=== PATIENT | female | born 2000 | race Caucasian/White ===

== ENCOUNTER 2021-04-20 12:30 | Outpatient (RCR) | payer OTHER, SELFPAY ==
--- NOTE | 2021-02-10 14:30 | PTOPEVAL ---
INITIAL PHYSICAL THERAPY EVALUATION/DISCHARGE SUMMARY Thank you for referring Caren Fuller to [facility].? Caren does not appear to need skilled PT at this times. I agree with the above. Referring Physician Date Admitting Provider: Attending Provider: Tyler Motta MD Referring Provider: *PT Outpatient Evaluation Start: 02/10/21 13:39 Freq: Status: Active Protocol: Document 02/10/21 13:35 DRU (Rec: 02/10/21 14:28 DRU [id number]) Therapy Assessment Status Assessment Status Assessment Status Evaluation Outpatient Past Medical History Past Medical History Source of Past Medical History Patient Neurological History Hx Cerebrovascular Accident (CVA) Yes: 12/2020-acute arterial ischemic stroke Hx Migraine Yes Cardiovascular History Hx Hypercholesterolemia Yes Evaluation Information Problem Diagnosis acute arterial ischemic stroke , multifocal, multiple vascular territories Onset ~01/06/21 Subjective Information Caren began noticing something Query Text:As Reported By Patient/ into R UE, slurred speech. Family Had just received 2nd COVID vaccine. When woke up next day - R arm felt like a noodle as well as with mild speech difficulties. Walking was a little more difficulty - clumsy type of feeling. Went to [facility] - then transferred to [place]. 1st time x 5 days Then returned for another steroid treatment - 5 days admission. 2nd discharge 01/16/21. Somehow her first PT and OT orders for out patient were cancelled. Took awhile to receive new orders. Caren reports being back to normal with exception of going downstairs by herself . Home stairs very steep and no railing. 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
--- NOTE | 2021-02-10 15:36 | OTOPEVAL ---
OCCUPATIONAL THERAPY INITIAL EVALUATION REPORT 02/10/21 Thank you for referring Caren Fuller to [facility].? The patient is scheduled to be seen for occupational therapy? 2x/week for 5 weeks. Please review, sign, date and return this plan of care CHERELLE. I agree with and certify that the following plan of care is medically necessary. Referring Physician Date Referring Provider: Tyler Motta MD *OT Outpatient Evaluation Start: 02/10/21 14:33 Therapy Assessment Status Assessment Status Assessment Status Evaluation Outpatient Past Medical History Past Medical History Source of Past Medical History Patient Neurological History Hx Cerebrovascular Accident (CVA) Yes: 12/2020-acute arterial ischemic stroke Hx Migraine Yes Cardiovascular History Hx Hypercholesterolemia Yes Respiratory History Hx Respiratory Disorders No Significant History Gastrointestinal History Hx Gastrointestinal Disorders No Significant History Genitourinary History Hx Genitourinary Disorders No Significant History Musculoskeletal History Hx Musculoskeletal Disorders No Significant History Hematological History Hx Hematological Disorders No Significant History Endocrine History Hx Endocrine Disorders No Significant History HEENT History Hx HEENT Disorders No Significant History Reproductive History Hx Reproductive Disorders No Significant History Psychosocial History Hx Psychiatric Disorders No Significant History Pain History History of Any Previous or Ongoing No Significant History Instance of Pain Anesthesia History Hx Anesthesia Reactions No Significant History Evaluation Information Problem Diagnosis acute arterial ischemic stroke , multifocal, multiple vascular territories Onset ~01/06/21 Subjective Information Caren reports having symptoms Query Text:As Reported By Patient/ of right UE weakness and Family slurred speech. Went to [facility] - then transferred to [place]. 1st admission and workup in acute care was 5 days. Then returned for another steroid treatment - 5 days admission. 2nd discharge 01/16/21. Prior Level of Function Activity Level (Last 3 Months) Occupation Graphic design student at [employer] Hand Dominance Left Activity of Daily Living Ability Needs Some Help Indoor/Home Mobility Independent Community Mobility Independent Stairs Ability Independent Functional Cognition (Planning, Shopping Independent , Taking Medications) Cook
--- NOTE | 2021-03-18 13:21 | OTOPEVAL ---
OCCUPATIONAL THERAPY RE-EVALUATION REPORT 03/18/2021 Patient presents today after 5 weeks of outpatient OT with improvements in all joints of the right UE. She has near normal strength in the right shoulder, elbow, and forearm. Continues to have residual weakness in the right wrist, fingers, and thumb, however she is improving from the initial evaluation. These improvements have facilitated greater independence with ADLs and leisure activities. Continued skilled OT indicated to progress HEPs, continue to challenge fine motor coordination, resistive therapeutic exercise for progressive strengthening, and body mechanics education to facilitate optimal functional use of the right UE. Thank you for referring Caren Fuller to [facility].? The patient is scheduled to be seen for continued occupational therapy? 2x/week for 5 weeks. Please review, sign, date and return this plan of care CHERELLE. I agree with and certify that the following plan of care is medically necessary. Referring Physician Date Referring Provider: Tyler Motta MD *OT Outpatient Re-Evaluation Start: 02/10/21 14:33 Problem Diagnosis acute arterial ischemic stroke , multifocal, multiple vascular territories Onset ~01/06/21 Additional Evaluation Detail Caren has participated in 9 outpatient OT sessions focusing on right UE strength and functional coordination. She is compliant with all materials. Subjective Information Patient reports I'm so much Query Text:As Reported By Patient/ better, but I'm not where I Family want to be yet. She states she feels stronger and has better movement, noting her ability to now move her fingers individually. Functionally, she has returned to being independent with bathing, doing her hair, using a computer to play the Ortiz (rated at 60% normal ), and tying her shoes. She intermittently ( about 30% of the time ) needs help with buttoning her pants. She has also reports being back to doing some cooking. She has not returned to driving yet. Pain Assessment Timing of Pain Assessment Timing of Pain Assessment Pre-Treatment Self Report Self Report Pain Level 0 Pain Score Pain Score 0: Self Report Upper Extremity Muscle Strength Testing Scapular/Shoulder Right Shoulder Flexion Strength 4+ Good + Shoulder Extension Strength 5 Normal
--- NOTE | 2021-04-20 13:44 | OTOPEVAL ---
OCCUPATIONAL THERAPY RE-EVALUATION AND POC UPDATE 04/20/21 Patient presents today after 10 weeks of outpatient OT with improvements in all joints of the right UE. She demonstrates return to functional strength in the right shoulder, elbow, forearm, and wrist. Continues to have residual weakness in the right fingers and thumb. These improvements have facilitated greater independence with ADLs and leisure activities. Today her entire HEP was reviewed and came up with a weekly schedule to help ensure increased compliance with the HEP. Plan to have patient complete her HEP for the next 4 weeks on her own and have her return for a final re-evaluation at that time. She is in agreement with this plan. Re-assessing for discharge on 05/20/21. Thank you for referring Caren Fuller to [facility].? The patient is scheduled to be seen for a final OT re-evaluation in 4 weeks. Please review, sign, date and return this plan of care CHERELLE. I agree with and certify that the following plan of care is medically necessary. Referring Physician Date Referring Provider: Tyler Motta MD *OT Outpatient Re-Evaluation Start: 02/10/21 14:33 Evaluation Information Problem Diagnosis acute arterial ischemic stroke , multifocal, multiple vascular territories Onset ~01/06/21 Additional Evaluation Detail Caren has participated in 9 outpatient OT sessions focusing on right UE strength and functional coordination. She is compliant with all materials. Subjective Information Patient reports that she has Query Text:As Reported By Patient/ made more improvements this Family month with the right UE. She notes improved ability to lift pots/pans in the kitchen and she states she is able to hold objects for longer in the right hand. She has returned to being independent with ADLs with the exception of intermittently ( about 30% of the time ) needing help with buttoning her pants. She has returned to doing some cooking and is also now driving. She just started her fall semester at [employer]. Pain Assessment Timing of Pain Assessment Timing of Pain Assessment Assessment Self Report Self Report Pain Level 0 Pain Score Pain Score 0: Self Report Upper Extremity Range of Motion General Upper Extremity Range of Motion Gross Upper Extremity Range of Motion Active ROM of the (R) UE is Comments WFL. Upper Extremity Muscle Strength Testing Scapular/Shoulder Right
--- NOTE | 2021-05-12 08:09 | PCOTNOTE ---
This treatment is being continued on visit number [id number]. Please see documentation on both accounts to view progress. Completed interventions, outcomes, and problems have been marked as Inactive to facilitate the copying of the Care plan routine for recurring accounts.
== END 2021-05-11 23:59 | disposition home or self-care (01) ==
LOC: ANHOT 12:30
DX: I63.89 Other cerebral infarction (principal)
CPT/HCPCS: 97110; 97112; 97162; 97166; 97530

== ENCOUNTER 2021-05-20 10:06 | Outpatient (RCR) | payer OTHER, SELFPAY ==
--- NOTE | 2021-05-12 08:10 | PCOTNOTE ---
The treatment documented on this account is a continuation of the treatment documented on visit number [id number]. Please see documentation on both accounts to view progress. The Plan of Care has been transitioned and updated within the new V#. I have addressed and agree with the discipline specific Problems, Interventions, and Goals for the current certification period. Completed interventions, outcomes, and problems have been marked as Inactive to facilitate the copying of the Care plan routine for recurring accounts.
--- NOTE | 2021-05-20 13:05 | OTOPEVAL ---
OCCUPATIONAL THERAPY REASSESSMENT AND DISCHARGE NOTE 05/20/21 Caren has again made gains with functional strength and coordination of the right UE. She states she has been using her hand a lot since school started back up again and she is doing all her school work at home on a computer. She has been using putty and a theraband to continue to work on strength also. She states she is happy with her progress and is ready for discharge. Discharging today with goals met. Thank you for referring Caren Fuller to [facility].? Please review, sign, date and return this Discharge Note CHERELLE. I agree with and certify that the following plan of care is medically necessary. Referring Physician Date Referring Provider: Tyler Motta MD *OT Outpatient Evaluation Start: 05/20/21 12:35 Evaluation Information Problem Diagnosis acute arterial ischemic stroke , multifocal, multiple vascular territories Onset ~01/06/21 Additional Evaluation Detail Caren participated in 2 months of therapy (February-Mar 2021). Reassessment in Mar was completed and it was decided to have patient work on her HEP for another month independently and then to come back at the end of Apr for a final reassesment of her improvements. Today was her final reassessment after a month off of therapy. Subjective Information Patient reports that in the Query Text:As Reported By Patient/ past month she has noticed Family improvements with hand strength and coordination. Noting improved abilities with typing/using a computer with more dexterity and endurance. States she is doing more in the kitchen and is getting better with being able to lift pots of water. Pain Assessment Timing of Pain Assessment Timing of Pain Assessment Re-assessment Self Report Self Report Pain Level 0 Pain Score Pain Score 0: Self Report Upper Extremity Range of Motion General Upper Extremity Range of Motion Gross Upper Extremity Range of Motion Active ROM of the (R) UE is Comments WFL. Upper Extremity Muscle Strength Testing Scapular/Shoulder Right Shoulder Flexion Strength 5 Normal Shoulder Extension Strength 5 Normal Shoulder Abduction Strength 5 Normal Shoulder Adduction Strength 5 Normal Elbow/Forearm Right Elbow Flexion Strength 5 Normal Elbow Extension Str
== END 2021-05-21 10:53 | disposition home or self-care (01) ==
LOC: ANHOT 10:06
DX: I63.89 Other cerebral infarction (principal)
CPT/HCPCS: 97110